=== PATIENT | female | born 1960 | race Two or more races ===

== ENCOUNTER → 2025-01-12 | Outpatient (CLI) | payer BC ==
[~2025-01-12] VITALS: Ht 157.5 cm; Wt 70.8 kg
[2025-01-12] MEDS: REGADENOSON 0.4 MG/5 ML SYRG IV ONE ×2 (12:47)
--- NOTE | 2025-01-15 07:54 | DVHSR ---
APPROVED REPORT Exam: Nuclear Stress Test Indication: Abnormal EKG BMI: 0 Medical History Medical History: HTN, DM Allergies: No known drug allergies Stress Test Details Stress Test: Pharmacologic stress testing performed using 0.4 mg of regadenoson per 5 mL given IV ov er 10 seconds. HR Resting HR: 45 bpmMax Heart Rate (APMHR): 156.394961 bpm Max HR Achieved: 78 bpmTarget HR (85% APMHR): 132.834753 bpm % of APMHR: 50.00 Recovery HR: 65 bpm BP Resting BP: 125/64 mmHg Recovery BP: 125/48 mmHg ECG Resting ECG: Sinus Bradycardia Clinical Reason for Termination: Completed protocol Nurse Comments Recieved pt. from [facility]. A/Ox4 on RA. Connected to environmental monitoring specialist, VS stable. PIV flushes well. Reviewed POC. Pt. verbalized understanding of procedure including risks and side ef fects, agrees for stress testing. Lexiscan stress test performed per protocol. [facility] tech administered Cardiolite. Pt. tolerated well . Pt. stable, no change on exam. VS returned to baseline. Transferred to [facility] via wheelchair w/ te ch. Stress ECG Conclusion normal pefusion scan no ischemia noted normal lvef 65% NM EXAM: Myocardial Perfusion REST/STRESS Imaging Protocol: Rest Tc-99m/Stress Tc-99m 1 day Resting Data Rest SPECT myocardial perfusion imaging was performed in supine position 60 minutes following the int ravenous injection of 11.7 mCi of Tc-99m Sestamibi. Time of rest injection: 1125 Time of rest imagin Administration Route: IV Administration Site: Left AC Pharmacologic Stress Pharmacologic stress test was performed by injecting Regadenoson 0.4 mg IV push followed by the intra venous injection of 34 mCi of Tc-99m Sestamibi. Time of stress injection: 1247 Time of stress imagin Administration Route: IV Administration Site: Left AC Gated Stress SPECT was performed 60 minutes after stress injection. The images were gated to evaluate regional wall motion and calculate left ventricular ejection fracti on. Stress only was performed in the Supine position. Nuclear Conclusion Nuclear Findings: negative for ischemia normal pefusion scan no ischemia noted normal lvef 65%
== END | disposition home or self-care (01) ==
LOC: XYW 09:04
PROVIDERS: ATTEND Specialist
DX: R00.1 Bradycardia, unspecified (principal); R94.31 Abnormal electrocardiogram [ECG] [EKG]; I10 Essential (primary) hypertension; E78.5 Hyperlipidemia, unspecified; E11.9 Type 2 diabetes mellitus without complications
CPT/HCPCS: 93017; J2785; 78452